=== PATIENT | female | born 1960 | race Caucasian/White ===

== ENCOUNTER 2016-07-11 16:19 | Emergency (ER) | payer BC ==
[~2016-07-11] VITALS: Ht 167.6 cm; Wt 114.4 kg
[~2016-07-11 16:19] MED LIST: ASPEC81 PO; BCPILLS PO; CHOL100027 PO; LEVO1TAB PO; LISI20TA55 PO; LSN/20125 PO; PROB1TAB16 PO; PROP80TA2 PO
[2016-07-11 16:24] VITALS: TEMP 36.8; Ht 167.6 cm; Wt 114.4 kg
[2016-07-11] MEDS ORDERED: SYN137 PO (16:38)
[2016-07-11] MEDS ORDERED: ASPI81TA28 PO (16:38)
[2016-07-11 17:20] LABS: BASO % 0.2 %; BASO ABS # 0.03 K/uL (0-0.2); COMPLETE YES; EOS % 3.2 %; HEMATOCRIT 41.1 % (37-47); IG% 0.3 %; LYMPH % 27.1 %; LYMPH ABS # 4.23 K/uL (1.2-3.4); MEAN CELL VOLUME 83.7 fL (80-100); MEAN CORPUSCULAR HEMOGLOBIN 27.5 pg (25-34); MEAN CORPUSCULAR HGB CONC 32.8 g/dl (32-36); MEAN PLATELET VOLUME 11.5 fL (7.4-10.4); NEUT % 63.2 %; PLATELET COUNT 319 K/uL (130-400); RED BLOOD COUNT 4.91 M/uL (4.2-5.4); WHITE BLOOD COUNT 15.61 K/uL (4.8-10.8)
[2016-07-11 17:26] LABS: URINE APPEARANCE CLEAR (CLEAR); URINE BILIRUBIN NEG (NEG); URINE COLOR DK YELLOW; URINE NITRITE NEG (NEG); URINE SPECIFIC GRAVITY 1.028 (1.000-1.030); UROBILINOGEN NEG (NEG); ZZUR CULT IF INDIC CLEAN CATCH NO
[2016-07-11 17:27] LABS: MANUAL MICROSCOPIC REQUIRED? NO; REVIEW REQ? NO
[2016-07-11 17:31] LABS: INR 0.9 (0.9-1.1); PARTIAL THROMBOPLASTIN RATIO 1.1
[2016-07-11 17:41] LABS: BUN/CREATININE RATIO 16.2 (10-20); CALCIUM 9.3 mg/dl (8.5-10.1); CREATININE 0.82 mg/dl (0.60-1.20); POTASSIUM 3.6 mmol/L (3.5-5.1)
[2016-07-11 17:43] LABS: ALB/GLOB RATIO 0.8 (0.9-2)
--- NOTE | 2016-07-11 17:46 | DIAGNOSTIC IMAGING REPORT ---
CHEST 2 VIEWS ROUTINE HISTORY: right rib pain, fevers COMPARISON: Chest 07/07/2014. FINDINGS: The lungs are clear. Cardiac silhouette is normal in size. No pleural effusions. No pneumothorax. No rib fractures. IMPRESSION: No acute process. Electronically signed by: Andrea Ceballos M.D. 07/11/2016 5:44 PM Dictated Date/Time: 07/11/2016 5:43 PM
[2016-07-11] MEDS ORDERED: OPTIRAY 320 IV PRN (18:00)
[2016-07-11 18:27] LABS: LYME DISEASE AB IGG NEG (NEG); LYME DISEASE AB IGM NEG (NEG)
--- NOTE | 2016-07-11 19:07 | DIAGNOSTIC IMAGING REPORT ---
CHEST CTA for PULMONARY ARTERIES CT DOSE: 1764.40 mGy.cm HISTORY: Right-sided chest pain. TECHNIQUE: Multiaxial CT images of the chest were performed following the intravenous administration of contrast to evaluate the pulmonary arteries. Maximal intensity projection images were also obtained. COMPARISON STUDY: Chest CTA 07/07/2014. FINDINGS: There is a normal caliber thoracic aorta with no evidence for dissection. There is no evidence for pulmonary embolus. No pleural effusions. No pneumothorax. The liver and spleen are unremarkable. No mediastinal or hilar lymphadenopathy. The central airways are patent. Right-sided anterior osteophytes within the thoracic spine resulting in small scarlike densities within the medial aspect of the right lower lobe. Otherwise, the lungs are clear. No acute fractures within the visualized osseous structures. IMPRESSION: No evidence for pulmonary embolus. Electronically signed by: Andrea Ceballos M.D. 07/11/2016 7:06 PM Dictated Date/Time: 07/11/2016 7:00 PM
--- NOTE | 2016-07-11 19:15 | DIAGNOSTIC IMAGING REPORT ---
ABDOMEN AND PELVIS CT WITH IV CONTRAST CT DOSE: HISTORY: right flank/rib pain, fevers TECHNIQUE: Multiaxial CT images of the abdomen and pelvis were performed following the use of intravenous contrast. COMPARISON STUDY: None. FINDINGS: No pneumoperitoneum. No pneumatosis. No acute fractures within the visualized osseous structures. Small fat-containing midline epigastric hernia. Cholecystectomy. The liver, pancreas, spleen, and adrenal glands are unremarkable. A 9 mm hypodense lesion within the right kidney is too small to characterize. There are surgical clips adjacent to the upper pole the left kidney. There is a 1.5 cm fat-containing lesion within the left kidney. This could represent focal cortical defect or a small angiomyolipoma. No hydronephrosis. No retroperitoneal lymphadenopathy. The bladder is unremarkable. A 5.5 x 3.6 cm exophytic cystic structure at the right side of the uterine fundus. No bowel wall thickening or obstruction. Normal appendix. IMPRESSION: 1. No bowel wall thickening or obstruction. 2. Normal appendix. 3. Surgical clips adjacent to the upper pole of the left kidney. There is also 1.5 cm fat-containing lesion within the left kidney. This could be due to focal cortical defect or a small angiomyolipoma. 4. A 5.5 x 3.6 cm exophytic cystic structure at the right side of the uterine fundus. This favors cystic degeneration of a fibroid. Follow-up nonemergent pelvic ultrasound is recommended for further evaluation. 5. Additional findings as described above. Electronically signed by: Andrea Ceballos M.D. 07/11/2016 7:13 PM Dictated Date/Time: 07/11/2016 7:06 PM
--- NOTE | 2016-07-11 19:36 | EMERGENCY ROOM VISIT NOTE ---
History First contact with patient: 16:34 Chief Complaint: RIB PAIN Stated Complaint: RT SIDED PAIN UNDER BREAST TO BACK History of Present Illness The patient is a 56 year old female who presents to the Emergency Room with complaints of pain under her right ribs. The patient states that for the past 2 weeks, she has had a severe pain in her right ribs. She states the pain feels "bandlike" and radiates from the right upper abdomen into the right side of the back. She rates the discomfort a 5/10. She states that at times, the pain "takes her breath away." She also reports she has had a low-grade fever at work for the past few days and chills for the past 2 days. Her fevers have been as high as 100.9F. She has been taking Tylenol at home. She reports associated nausea, but no vomiting. The patient was seen at an urgent care 3 days ago and prescribed Robaxin, which she has been taking with no relief. The patient has a history of renal cell carcinoma and had a left partial nephrectomy in 2011. She states she has been cancer free since then. She has had a prior cholecystectomy. She does take control pills, but does not smoke and denies any personal or family history of blood clots. She denies any recent long travel. She denies any history of similar symptoms. She denies shortness of breath, chest pain, urinary symptoms, hematochezia, melena or changes in bowel movements. Review of Systems A complete 10 point review of systems was reviewed with the patient with pertinent positives and negatives as per history of present illness. All else were negative. Past Medical/Surgical History Medical Problems: (1) Hypertension Family History Heart disease Social History Smoking Status: Never Smoker Marital Status: Occupation Status: employed Current/Historical Medications Scheduled Aspirin (Aspirin Ec), 81 MG PO QAM Control Pills ( Control Pills), 1 TAB PO DAILY Cholecalciferol (Vitamin D 1000 Unit), 1,000 UNITS PO QAM Hctz/Lisinopril (Zestoretic 20MG/12.5MG), 1 TAB PO DAILY Levothyroxine Sodium (Levothyroxine Sodium), 137 MCG PO QAM Probiotic Product (Probiotic), 1 TAB PO QAM Propranolol (Inderal), 80 MG PO QAM Allergies Coded Allergies: No Known Allergies (Unverified , 07/11/16) PER H&P Physical Exam Vital Signs Date Time Temp Pulse Resp B/P Pulse Ox O2 Delivery O2 Flow Rate FiO2 07/11/16 19:42 76 18 153/80 97 Room Air 07/11/16 18:44 76 20 132/92 97 Room Air 07/11/16 16:24 36.8 85 18 147/92 97 Room Air Physical Exam VITALS: Vitals are noted on the nurse's note and reviewed by myself. Vital signs stable. GENERAL: This is a 56-year-old female, in no acute distress, nondiaphoretic, well-developed well-nourished. SKIN: The skin was without rashes. EARS: External auditory canals clear, tympanic membranes pearly armendariz without erythema or effusion bilaterally. EYES: Pupils equal round and reactive to light and accommodation. MOUTH: Mucous membranes moist. Tonsils are not enlarged. Pharynx without erythema or exudate. NECK: Supple without nuchal rigidity. No lymphadenopathy. HEART: Regular rate and rhythm without murmurs gallops or rubs. LUNGS: Clear to auscultation bilaterally without wheezes, rales or rhonchi. No retractions or accessory muscle use. ABDOMEN: Positive bowel sounds x 4. Soft, nontender, without masses or organomegaly. MUSCULOSKELETAL: No tenderness to palpation of the right chest wall. NEURO: Patient was alert and oriented to person place and time. Medical Decision & Procedures ER Provider Diagnostic Interpretation: CHEST 2 VIEWS ROUTINE FINDINGS: The lungs are clear. Cardiac silhouette is normal in size. No pleural effusions. No pneumothorax. No rib fractures. IMPRESSION: No acute process. CHEST CTA for PULMONARY ARTERIES FINDINGS: There is a normal caliber thoracic aorta with no evidence for dissection. There is no evidence for pulmonary embolus. No pleural effusions. No pneumothorax. The liver and spleen are unremarkable. No mediastinal or hilar lymphadenopathy. The central airways are patent. Right-sided anterior osteophytes within the thoracic spine resulting in small scarlike densities within the medial aspect of the right lower lobe. Otherwise, the lungs are clear. No acute fractures within the visualized osseous structures. IMPRESSION: No evidence for pulmonary embolus. ABDOMEN AND PELVIS CT WITH IV CONTRAST FINDINGS: No pneumoperitoneum. No pneumatosis. No acute fractures within the visualized osseous structures. Small fat-containing midline epigastric hernia. Cholecystectomy. The liver, pancreas, spleen, and adrenal glands are unremarkable. A 9 mm hypodense lesion within the right kidney is too small to characterize. There are surgical clips adjacent to the upper pole the left kidney. There is a 1.5 cm fat-containing lesion within the left kidney. This could represent focal cortical defect or a small angiomyolipoma. No hydronephrosis. No retroperitoneal lymphadenopathy. The bladder is unremarkable. A 5.5 x 3.6 cm exophytic cystic structure at the right side of the uterine fundus. No bowel wall thickening or obstruction. Normal appendix. IMPRESSION: 1. No bowel wall thickening or obstruction. 2. Normal appendix. 3. Surgical clips adjacent to the upper pole of the left kidney. There is also 1.5 cm fat-containing lesion within the left kidney. This could be due to focal cortical defect or a small angiomyolipoma. 4. A 5.5 x 3.6 cm exophytic cystic structure at the right side of the uterine fundus. This favors cystic degeneration of a fibroid. Follow-up nonemergent pelvic ultrasound is recommended for further evaluation. 5. Additional findings as described above. Laboratory Results 07/11/16 17:10 Red Blood Count 4.91, Mean Corpuscular Volume 83.7, Mean Corpuscular Hemoglobin 27.5, Mean Corpuscular Hemoglobin Concent 32.8, Mean Platelet Volume 11.5, Neutrophils (%) (Auto) 63.2, Lymphocytes (%) (Auto) 27.1, Monocytes (%) (Auto) 6.0, Eosinophils (%) (Auto) 3.2, Basophils (%) (Auto) 0.2, Neutrophils # (Auto) 9.87, Lymphocytes # (Auto) 4.23, Monocytes # (Auto) 0.93, Eosinophils # (Auto) 0.50, Basophils # (Auto) 0.03 07/11/16 17:10 Test 07/11/16 17:10 White Blood Count 15.61 K/uL (4.8-10.8) Red Blood Count 4.91 M/uL (4.2-5.4) Hemoglobin 13.5 g/dL (12.0-16.0) Hematocrit 41.1 % (37-47) Mean Corpuscular Volume 83.7 fL (80-100) Mean Corpuscular Hemoglobin 27.5 pg (25-34) Mean Corpuscular Hemoglobin Concent 32.8 g/dl (32-36) Platelet Count 319 K/uL (130-400) Mean Platelet Volume 11.5 fL (7.4-10.4) Neutrophils (%) (Auto) 63.2 % Lymphocytes (%) (Auto) 27.1 % Monocytes (%) (Auto) 6.0 % Eosinophils (%) (Auto) 3.2 % Basophils (%) (Auto) 0.2 % Neutrophils # (Auto) 9.87 K/uL (1.4-6.5) Lymphocytes # (Auto) 4.23 K/uL (1.2-3.4) Monocytes # (Auto) 0.93 K/uL (0.11-0.59) Eosinophils # (Auto) 0.50 K/uL (0-0.5) Basophils # (Auto) 0.03 K/uL (0-0.2) RDW Standard Deviation 47.7 fL (36.4-46.3) RDW Coefficient of Variation 15.6 % (11.5-14.5) Immature Granulocyte % (Auto) 0.3 % Immature Granulocyte # (Auto) 0.05 K/uL (0.00-0.02) Prothrombin Time 10.0 SECONDS (9.0-12.0) Prothromb Time International Ratio 0.9 (0.9-1.1) Activated Partial Thromboplast Time 27.5 SECONDS (21.0-31.0) Partial Thromboplastin Ratio 1.1 D-Dimer 610 ug/L FEU (0-500) Urine Color DK YELLOW Urine Appearance CLEAR (CLEAR) Urine pH 6.0 (4.5-7.5) Urine Specific [place] 1.028 (1.000-1.030) Urine Protein NEG (NEG) Urine Glucose (UA) NEG (NEG) Urine Ketones NEG (NEG) Urine Occult Blood NEG (NEG) Urine Nitrite NEG (NEG) Urine Bilirubin NEG (NEG) Urine Urobilinogen NEG (NEG) Urine Leukocyte Esterase NEG (NEG) Anion Gap 7.0 mmol/L (3-11) Est Creatinine Clear Calc Drug Dose 98.3 ml/min Estimated GFR () 92.7 Estimated GFR (Non- 80.0 BUN/Creatinine Ratio 16.2 (10-20) Calcium Level 9.3 mg/dl (8.5-10.1) Total Bilirubin 0.2 mg/dl (0.2-1) Aspartate Amino Transf (AST/SGOT) 15 U/L (15-37) Alanine Aminotransferase (ALT/SGPT) 27 U/L (12-78) Alkaline Phosphatase 96 U/L (45-117) Total Protein 7.5 gm/dl (6.4-8.2) Albumin 3.3 gm/dl (3.4-5.0) Globulin 4.2 gm/dl (2.5-4.0) Albumin/Globulin Ratio 0.8 (0.9-2) Lipase 180 U/L (73-393) Lyme Disease IgG Antibody NEG (NEG) Lyme Disease IgM Antibody NEG (NEG) ED Course The patient was evaluated as above. Labs were drawn and IV access was obtained. The patient declined analgesics. Patient was reevaluated and findings were discussed. Discharge instructions were reviewed with the patient. The patient verbalized understanding of my assessment and treatment plan and was discharged home in good condition. Medical Decision Differential diagnosis includes hepatitis, pancreatitis, pulmonary embolism, pneumonia, musculoskeletal pain, among others, among others. The patient is a 56-year-old female who presents today complaining of right rib pain for the past 2 weeks. Previous records were reviewed. Labs revealed a leukocytosis of 15,000, possibly due to infection or stress. Kidney function was within normal limits. Liver functions were within normal limits. Lipase was not elevated. Urinalysis was not suggestive of infection. D-dimer was found to be elevated and therefore CT of the chest was ordered. CT of the abdomen and pelvis was also ordered given the patient's leukocytosis. CT of the chest showed no evidence of pulmonary embolism. CT of the abdomen and pelvis showed a uterine fibroid and angiomyolipoma of the left kidney, both findings that the patient was already aware of. I am unable to find any acute cause of the patient's pain. It certainly may be musculoskeletal. She was instructed to follow-up closely with her primary care provider and oncologist. She will return here for any worsening of her current condition. Based on the patient's presentation and work up, I feel the patient is stable for outpatient treatment. The patient was educated to return to the emergency department for any worsening of their current condition or new/concerning symptoms. She will follow up with her PCP this week. Impression Primary Impression: Rib pain on right side Departure Information Dispostion Home / Self-Care Condition GOOD Referrals Danita Burgess D.O. (PCP) Patient Instructions [facility] Additional Instructions For pain control, you can use the following [id number] medicines (if >12 yo): - Regular strength (325mg/tab) Tylenol (acetaminophen) 2 tabs every 4-6 hours as needed. Do not exceed 12 tablets in a 24 hour period. Avoid taking more than 4 grams (4000 mg) of Tylenol per day. This includes any other sources of acetaminophen you may take on a regular basis. - Regular strength (200 mg/tab) Advil (ibuprofen) 1-2 tabs every 4-6 hours as needed. Do not exceed a dose of 3200 mg per day. Follow-up with a primary care this week for further evaluation. Return to the emergency department with any worsening or new/concerning symptoms.
[2016-07-11 19:42] VITALS: BP 153/80; PULSE 76; O2SAT 97
== END 2016-07-11 19:44 | disposition home or self-care (01) ==
LOC: C.EDB 16:20
DX: R07.81 Pleurodynia (principal); I10 Essential (primary) hypertension; D25.9 Leiomyoma of uterus, unspecified; D17.71 Benign lipomatous neoplasm of kidney; Z85.528 Personal history of other malignant neoplasm of kidney; Z90.5 Acquired absence of kidney; Z90.49 Acquired absence of other specified parts of digestive tract; Z79.82 Long term (current) use of aspirin; Z79.899 Other long term (current) drug therapy

== ENCOUNTER → 2016-12-22 | Outpatient (CLI) | payer BC ==
[~2016-12-22] MED LIST changes: -ASPEC81 PO; +ASPI81TA28 PO; -LEVO1TAB PO; -LISI20TA55 PO; +SYN137 PO
== END | disposition home or self-care (01) ==
LOC: C.RDSM 14:48
PROVIDERS: ATTEND Physical Medicine & Rehabilitation Sports Medicine
DX: S42.302A Unspecified fracture of shaft of humerus, left arm, initial encounter for closed fracture (principal); X58.XXXA Exposure to other specified factors, initial encounter

== ENCOUNTER → 2016-12-22 | Outpatient (CLI) | payer BC ==
[2016-12-22 17:26] LABS: BASO % 0.3 %; BASO ABS # 0.04 K/uL (0-0.2); COMPLETE YES; EOS % 3.3 %; HEMATOCRIT 44.7 % (37-47); IG% 0.4 %; LYMPH % 27.9 %; LYMPH ABS # 3.52 K/uL (1.2-3.4); MEAN CELL VOLUME 83.4 fL (80-100); MEAN CORPUSCULAR HEMOGLOBIN 27.8 pg (25-34); MEAN CORPUSCULAR HGB CONC 33.3 g/dl (32-36); MEAN PLATELET VOLUME 12.6 fL (7.4-10.4); MONO % 6.9 %; NEUT % 61.2 %; PLATELET COUNT 256 K/uL (130-400); RED BLOOD COUNT 5.36 M/uL (4.2-5.4); WHITE BLOOD COUNT 12.61 K/uL (4.8-10.8)
--- NOTE | 2017-01-11 08:33 | CODING QUERY NO DIAGNOSIS ---
TREATMENT RENDERED WITHOUT A DIAGNOSIS : 1960 To promote full compliance with coding requirements relating to patient care, physician participation is requested in all cases of collections clerk uncertainty. Please assist us with providing a diagnosis/symptom for the test(s) below: A diagnosis/symptom was not documented on your Order. A valid diagnosis/symptom is required to bill all insurances. Please remember that we are unable to code a diagnosis of rule out, probable, possible, questionable, or suspected. Tests that require a diagnosis: DOS: 12/22/16 * CBC WITH AUTO DIFFER DIAGNOSIS: * VITAMIN D, 25-HYDROXY DIAGNOSIS: Provider Signature: Date: Thank you Shriley Chavez Health Information Management Once completed, please kindly fax back to [phone] For questions please call [phone]
== END | disposition home or self-care (01) ==
LOC: C.LAB1850 16:46
PROVIDERS: ATTEND Physical Medicine & Rehabilitation Sports Medicine
DX: S42.342G Displaced spiral fracture of shaft of humerus, left arm, subsequent encounter for fracture with delayed healing (principal); X58.XXXD Exposure to other specified factors, subsequent encounter

== ENCOUNTER → 2017-01-12 | Outpatient (CLI) | payer BC ==
--- NOTE | 2017-01-12 15:38 | DIAGNOSTIC IMAGING REPORT ---
L UPPER EXTREMITY WITHOUT CLINICAL HISTORY: 56 years-old Female presenting with LEFT SHOULDER HUMERAL FX. TECHNIQUE: Multidetector CT of the left humerus was performed without the use of intravenous contrast. IV contrast: None. A dose lowering technique was used consistent with the principles of ALARA (as low as reasonably achievable). COMPARISON: Plain radiographs of the left humerus from 12/22/2016. CT DOSE (mGy.cm): The estimated cumulative dose is 1502.29 mGy.cm. FINDINGS: Forming Press Operator topogram: Fracture of the left humerus noted. Cholecystectomy clips. Subacute to chronic fracture of the proximal to mid diaphysis of the left humerus with nonbridging callus formation. The fracture plane extends obliquely from the proximal posterior cortex to the anterior distal cortex. No significant malalignment. The deltoid muscle appears to insert on the proximal fracture fragment. The glenohumeral joint is congruent. No focal fluid collection or soft tissue abnormality. IMPRESSION: Findings consistent with subacute to chronic fracture of the proximal to mid diaphysis of the left humerus with nonbridging callus formation. Electronically signed by: Carlos Junior M.D. 01/12/2017 3:37 PM Dictated Date/Time: 01/12/2017 3:34 PM
--- NOTE | 2017-01-12 19:55 | DIAGNOSTIC IMAGING REPORT ---
MRI OF THE LEFT SHOULDER WITHOUT CONTRAST CLINICAL HISTORY: Left humeral fracture. Left shoulder pain with decreased range of motion. COMPARISON STUDY: Left humerus radiographs December 22, [address] of the left upper arm January 12, 2017. TECHNIQUE: Utilizing 1.5 Kisha magnet and dedicated coil, multiplanar, multiecho imaging of the left shoulder was performed without intravenous or intra-articular contrast. FINDINGS: Alignment of the left shoulder is anatomic. The incompletely healed fracture of the proximal shaft of the left humerus is partially imaged on this exam. There is associated marrow edema. Fracture line remains evident. This exam is moderately compromised by motion artifact. Moderate osteoarthritis of the left acromioclavicular joint is noted as well as mild osteoarthritis of the glenohumeral joint. The glenoid labrum is suboptimally assessed on this exam but the findings suggest a complex tear involving the majority of the glenoid labrum. There is no full-thickness rotator cuff tear. Tendinopathy of distal supraspinatus and infraspinatus is noted with partial thickness articular surface tear of distal supraspinatus. There is mild muscular atrophy of supraspinatus. There is no tendon retraction. There is moderate tendinopathy of the proximal long head of the biceps tendon. IMPRESSION: 1. Moderate tendinopathy of distal supraspinatus and infraspinatus with partial-thickness articular surface tear of distal supraspinatus. No full-thickness rotator cuff tear identified although exam compromised by motion artifact. Mild muscular atrophy of supraspinatus. No tendon retraction. 2. Complex glenoid labral tear. 3. Moderate tendinopathy of the proximal long head of biceps tendon. 4. Moderate osteoarthritis of the left acromioclavicular joint and mild osteoarthritis of the left glenohumeral joint. 5. Partial visualization of the incompletely healed fracture of the proximal shaft of the left humerus which suggests a developing nonunion/nonunion. Electronically signed by: Heath Villaseñor M.D. 01/12/2017 7:54 PM Dictated Date/Time: 01/12/2017 5:01 PM
== END | disposition home or self-care (01) ==
LOC: C.CTS 15:09
PROVIDERS: ATTEND Physical Medicine & Rehabilitation Sports Medicine
DX: S42.342G Displaced spiral fracture of shaft of humerus, left arm, subsequent encounter for fracture with delayed healing (principal); S46.012A Strain of muscle(s) and tendon(s) of the rotator cuff of left shoulder, initial encounter; S43.492A Other sprain of left shoulder joint, initial encounter; M75.22 Bicipital tendinitis, left shoulder; M19.012 Primary osteoarthritis, left shoulder; X58.XXXD Exposure to other specified factors, subsequent encounter; X58.XXXA Exposure to other specified factors, initial encounter